=== PATIENT | female | born 1990 | race Caucasian/White ===

== ENCOUNTER 2023-01-15 11:55 | Outpatient (CLI) | payer OTHER, SELFPAY ==
--- NOTE | ~2023-01-15 | XR_ITS ---
EXAMINATION: XR hysterosalpingogram DATE: 01/15/2023 13:18 INDICATION: Fragility fasting. TECHNIQUE: Fluoroscopy was performed by the radiologist during contrast infusion into the endometrial cavity of the uterus by the primary physician. Fluoroscopy exposure time was 0.3 minutes. The total number of images was 5. FINDINGS: The intrauterine cavity is normal in morphology. There is left-sided hydrosalpinx. There is normal free intraperitoneal spillage of contrast on either side. IMPRESSION: 1. Patent fallopian tubes. 2. Left-sided hydrosalpinx. Reviewed, dictated and finalized at location A.
== END 2023-01-15 11:56 | disposition home or self-care (01) ==
LOC: ANHIMG 12:07
PROVIDERS: PCP Hospitalist; Visit Provider Obstetrics & Gynecology Gynecology
DX: Z31.49 Encounter for other procreative investigation and testing (principal); N70.11 Chronic salpingitis
CPT/HCPCS: 58340; 74740; Q9966